=== PATIENT | male | born 1950 | race Caucasian/White ===

== ENCOUNTER → 2017-12-10 | Outpatient (REF) | payer MEDICARE, BC ==
[2017-12-10 17:25] LABS: INR 2.53; PROTHROMBIN TIME 27.8 SECONDS (12.1-14.4)
== END ==
LOC: M LABDRAWC 16:35
DX: I34.2 Nonrheumatic mitral (valve) stenosis (principal)
CPT/HCPCS: 85610

== ENCOUNTER → 2017-12-24 | Outpatient (REF) | payer MEDICARE, BC ==
[2017-12-24 17:26] LABS: INR 2.02; PROTHROMBIN TIME 23.2 SECONDS (12.1-14.4)
== END ==
LOC: M LABDRAWC 16:42
DX: I34.2 Nonrheumatic mitral (valve) stenosis (principal)
CPT/HCPCS: 85610

== ENCOUNTER 2017-12-31 12:12 | Outpatient (RCR) | payer MEDICARE, BC | END 2018-01-02 | LOC: M CR 01-02 09:15 | DX: Z95.3 Presence of xenogenic heart valve (principal); I35.9 Nonrheumatic aortic valve disorder, unspecified | CPT/HCPCS: 93798 ==

== ENCOUNTER 2018-01-07 08:57 | Outpatient (RCR) | payer MEDICARE, BC | END 2018-02-01 | LOC: M CR 08:57 | DX: Z51.89 Encounter for other specified aftercare (principal); Z95.3 Presence of xenogenic heart valve; I35.9 Nonrheumatic aortic valve disorder, unspecified | CPT/HCPCS: 93798 ==

== ENCOUNTER → 2018-01-07 | Outpatient (REF) | payer MEDICARE, BC ==
[2018-01-07 17:17] LABS: INR 1.61; PROTHROMBIN TIME 19.4 SECONDS (12.1-14.4)
== END ==
LOC: M LABDRAWC 16:26
DX: I34.0 Nonrheumatic mitral (valve) insufficiency (principal)
CPT/HCPCS: 85610

== ENCOUNTER → 2018-01-15 | Outpatient (REF) | payer MEDICARE, BC ==
[2018-01-15 19:33] LABS: INR 1.72; PROTHROMBIN TIME 20.5 SECONDS (12.1-14.4)
== END ==
LOC: M LABDRAWC 16:54
DX: I34.0 Nonrheumatic mitral (valve) insufficiency (principal)
CPT/HCPCS: 85610

== ENCOUNTER → 2018-01-28 | Outpatient (CLI) | payer MEDICARE, BC ==
[2018-01-28 11:03] LABS: INR 2.13; PROTHROMBIN TIME 24.2 SECONDS (12.1-14.4)
== END ==
LOC: M LAB 10:18
DX: I34.2 Nonrheumatic mitral (valve) stenosis (principal)
CPT/HCPCS: 85610

== ENCOUNTER 2018-02-02 09:23 | Outpatient (RCR) | payer MEDICARE, BC | END 2018-03-04 | LOC: M CR 09:23 | DX: Z95.3 Presence of xenogenic heart valve (principal) | CPT/HCPCS: 93798 ==

== ENCOUNTER → 2019-11-29 | Outpatient (REF) | payer MEDICARE ==
[~2019-11-29] MED LIST: ATOR1TAB21 PO; COUM1TAB19 PO; ECOT81TA5 PO; LOPR1TAB6 PO; TRAM50TA2 PO; TYLE325T5 PO
[2020-01-03 11:10] LABS: ALBUMIN 4.1 GM/DL (3.2-5.2); ALT/SGPT 25 U/L (12-78); BILIRUBIN,TOTAL 0.4 MG/DL (0.2-1.0); BLOOD UREA NITROGEN 21 MG/DL (7-18); CALCIUM LEVEL 9.4 MG/DL (8.8-10.2); CARBON DIOXIDE LEVEL 31 MEQ/L (21-32); CHLORIDE LEVEL 108 MEQ/L (98-107); CHOLESTEROL LEVEL 114 MG/DL (<200); CREATININE FOR GFR 1.25 MG/DL (0.70-1.30); GLOMERULAR FILTRATION RATE > 60.0 (>49); GLUCOSE, FASTING 116 MG/DL (70-100); HDL CHOLESTEROL 53 MG/DL (>40); LDL CHOLESTEROL 43 MG/DL (<100); NON-HDL-C 61 MG/DL; SODIUM LEVEL 141 MEQ/L (136-145); TOTAL 25(OH) VITAMIN D 32.2 NG/ML (30.0-100.0); TOTAL PROTEIN 6.9 GM/DL (6.4-8.2); TRIGLYCERIDES LEVEL 88 MG/DL (<150)
[2020-01-03 11:11] LABS: HEMOGLOBIN A1c 5.4 %
== END ==
LOC: M LABDRAWC 14:07
PROVIDERS: ATTEND Family Medicine
DX: R73.03 Prediabetes (principal); E55.9 Vitamin D deficiency, unspecified; K76.0 Fatty (change of) liver, not elsewhere classified; J06.9 Acute upper respiratory infection, unspecified; I34.2 Nonrheumatic mitral (valve) stenosis